=== PATIENT | male | born 1965 | race Two or more races ===

== ENCOUNTER 2024-06-25 12:40 | Emergency (ER) | payer MEDICARE, OTHER ==
[~2024-06-25] VITALS: Ht 167.6 cm; Wt 50.3 kg
[2024-06-25 12:47] VITALS: BP 135/79; TEMP 98.1
[2024-06-25] MEDS ORDERED: BENZ-13 PO (13:21)
[2024-06-25 13:29] VITALS: O2SAT 100
== END 2024-06-25 13:29 | disposition home or self-care (01) ==
LOC: ER 12:43
DX: R05.9 Cough, unspecified (principal); E11.9 Type 2 diabetes mellitus without complications; Z79.899 Other long term (current) drug therapy